=== PATIENT | male | born 2005 | race Two or more races ===

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

== ENCOUNTER 2024-09-06 03:23 | Emergency (ER) | payer OTHER, SELFPAY ==
[2024-09-06 03:31] VITALS: BP 148/102
[2024-09-06 04:47] LABS: % Basophils 0.4 % (0-2); % Eosinophils 1.9 % (0-6); % Immature Granulocytes 0.3 % (0-0.5); % Lymphocytes 35.5 % (20.5-51.1); % Neutrophils 53.9 % (42.2-75.2); Absolute Basophils 0.1 10^3/uL (0-0.2); Absolute Eosinophils 0.2 10^3/uL (0-0.7); Absolute Lymphocytes 4.2 10^3/uL (1.2-3.4); Absolute Monocytes 0.9 10^3/uL (0.1-0.6); Absolute Neutrophils 6.3 10^3/uL (1.4-6.5); Hematocrit 42.9 % (39.0-52.0); Hemoglobin 14.7 g/dL (13.0-18.0); Mean Corp Hgb Conc. 34.3 g/dL (33.0-37.0); Mean Corpuscular Hgb 28.9 pg (27.0-31.0); Mean Corpuscular Volume 84.4 fL (80.0-94.0); Mean Platelet Volume 10.2 fL (7.4-10.4); Nucleated Red Blood Cells % 0 % (-); Platelet Count 333 10^3/uL (130-400); Red Blood Cell Count 5.08 10^6/uL (4.70-6.10); Red Cell Dist. Width 12.6 % (11.5-14.5); White Blood Cell Count 11.8 10^3/uL (4.8-10.8)
[2024-09-06 04:50] LABS: Urine Albumin 1+ (Neg - Trace); Urine Bilirubin Negative (Negative); Urine Character Clear (Clear); Urine Color Yellow; Urine Glucose 4+ (Negative); Urine Ketone Negative (Negative); Urine Leukocyte Negative (Negative); Urine Nitrite Negative (Negative); Urine Occult Blood Negative (Negative); Urine Urobilinogen Negative (Neg - 1+); Urine pH 6.5 (5.0-9.0)
[2024-09-06 05:09] LABS: Urine Red Blood Cell 0-2 /HPF (0-2); Urine White Cell None Seen /HPF (0-5)
[2024-09-06 05:19] LABS: Blood Urea Nitrogen 14 mg/dl (9-20); Calcium 9.7 mg/dl (8.4-10.2); Carbon Dioxide 25 mmol/L (22-30); Chloride 106 mmol/L (98-107); Glucose 289 mg/dl (70-99); Lipase 71 U/L (23-300); Sodium 139 mmol/L (135-145); eGFR > 60.00
[2024-09-06] MEDS: TORADOL 15 MG IV (06:40)
[2024-09-06 06:50] VITALS: BP 140/76
--- NOTE | 2024-09-06 07:03 | ED.GENMED ---
History of Present Illness
General
Chief Complaint: Flank Pain
Source: patient
Exam Limitations: none
Time Seen by Provider: 09/06/24 06:06
Nursing documentation reviewed up to this point in time: agreed with
History of Present Illness
History of Present Illness:
Patient with history of diabetes, presents to ED secondary to 4-day history of persistent left flank/mid back pain. Denies fever or chills. Denies nausea, vomiting, or diarrhea. Denies difficulty with urination. Denies trauma. Denies recent
illness. Denies recent change in medications or diet. There is no family history of kidney stones. Denies previous history of similar symptoms.
Review of Systems
Review of Systems
Allergies reviewed?: Yes
All Other Systems: ROS reviewed and negative except as documented in HPI and ROS
Constitutional: Reports no symptoms; Denies fever
ABD/GI: Denies vomiting or diarrhea
: Reports flank pain
Musculoskeletal: Reports back pain
Skin: Reports no symptoms
Neurological: Reports no symptoms
Phy Exam
Physical Exam
Physical Exam:
Physical Exam
General: mild painful distress, not acutely ill. afebrile
Head: nc/at. eomi
Neck: supple. no meningeal signs.
Heart: s1/s2 regular rate and rhythm
Lungs: no acute respiratory distress. clear bilaterally
Abdomen: normal bowel sounds. not tender.
Back: no midline tenderness
Neuro: alert and oriented x 3. no focal neurological deficits
Skin: no rash
Psychiatric: well kept. interactive and cooperative
Extremities: no edema. no calf tenderness.
Course
Orders/Labs/Results
Orders:
Orders
09/06/24 04:36
Basic Metabolic Panel Urgent
Comment: NO K
Complete Blood Count/With Diff Urgent
Lipase Urgent
Urinalysis Reflex To Culture Urgent
Date Specimen was Collected: 09/06/24
Time Specimen was Collected: 04:05
Urine Microscopic Reflex Cult Urgent
09/06/24 06:27
Ketorolac [Toradol] 15 mg IV NOW STA
09/06/24 06:28
CT Abd/pel Without Iv Or Oral Urgent
Comment:
Reason For Exam: left flank pain
09/06/24 06:32
Ketorolac [Toradol] 15 mg .ROUTE .STK-MED ONE
Abnormal Lab Results
09/06/24
04:36
WBC 11.8 H 10^3/uL
(4.8-10.8)
Absolute Lymphs (auto) 4.2 H 10^3/uL
(1.2-3.4)
Absolute Monos (auto) 0.9 H 10^3/uL
(0.1-0.6)
Glucose 289 H mg/dl
(70-99)
Urine Glucose 4+ A
(Negative)
Urine Albumin (Reflex) 1+ A
(Neg - Trace)
09/06/24 04:36
09/06/24 04:36
Vital Signs
Initial and Last Documented VS:
Initial Vital Signs
Temp Pulse Resp BP Pulse Ox
98.1 F 98 20 148/102 98
09/06/24 03:31 09/06/24 03:31 09/06/24 03:31 09/06/24 03:31 09/06/24 03:31
Last Documented Vital Signs
Temp Pulse Resp BP Pulse Ox
98.1 F 92 16 145/74 98
09/06/24 03:31 09/06/24 09:52 09/06/24 09:52 09/06/24 09:52 09/06/24 09:52
MDM/Problems Addressed
MDM/Problems Addressed:
Patient with an unremarkable workup in ED, including blood work and CT abdomen pelvis. Patient reports mild improvement after treatment. Patient otherwise remains afebrile, hemodynamically stable, and nontoxic-appearing. Via language line,
discussed all test results and return precautions provided. Patient expresses understanding at time of discharge, including need to follow-up with PCP for reevaluation, including reassessment of flank pain along with hyperglycemia.
*Critical Care Note
Total Time (30-74mins, 75-104mins- exclusive of procedures): Not Applicable
ED Attending Note
-
Portions of this chart may have been created with voice recognition software.� Occasional wrong word or��sound alike� substitutions may have occurred due to the inherent limitations of voice recognition software.
Discharge Plan
Departure
Patient Disposition: Home (Routine Discharge)
Date of Disposition: 09/06/24
Time of Disposition: 09:53
Patient with high blood pressure during this ER visit?: Yes
Condition: Good
Discharge Problem:
Flank pain, Hyperglycemia
Instructions: Flank Pain (DC), High blood sugar in adults - ED discharge instructions
Referrals:
UNKNOWN - PT DOES,NOT KNOW [Family Provider] -
Activity Restrictions/Additional Instructions:
As discussed, please follow-up with your primary care physician for reevaluation. Please return to ED with worsening symptoms, i.e. fever/worsening pain/vomiting.
Interventions
Interventions:
*Risk Screen - Suicide Last Done: 09/06/24 03:31
*General Assessment Last Done: 09/06/24 03:31
*Neglect/Abuse Screening Last Done: 09/06/24 03:31
*ED- Fall Risk Assessment Last Done: 09/06/24 03:31
*ED COVID-19 Vaccine History Last Done: 09/06/24 03:31
*Nursing Disposition Last Done: 09/06/24 10:02
WP-Jauhql-Thnjvvzboy Assessment Last Done: 09/06/24 03:55
ED-Male Genitourinary Assessment Last Done: 09/06/24 03:55
Discharge Date and Time
Discharge Date/Time: 09/06/24 10:08
Print Language: GERMAN
[2024-09-06 09:52] VITALS: BP 145/74
== END 2024-09-06 10:08 | disposition home or self-care (01) ==
LOC: EMR 03:23
PROVIDERS: Emergency Medicine; EMERGENCY PHYSICIAN Emergency Medicine
DX: R10.9 Unspecified abdominal pain (principal); E11.65 Type 2 diabetes mellitus with hyperglycemia
CPT/HCPCS: 99284; 96374; 74176; 80048; 81003; 81015; 83690; 85025

== ENCOUNTER → 2025-02-16 10:25 | Outpatient (REF) | payer OTHER, SELFPAY ==
[2025-02-16 11:42] LABS: Microalb - Urine Creatinine 196.500 mg/dl
[2025-02-16 11:52] LABS: ALT (SGPT) 147 U/L (0-50); AST (SGOT) 67 U/L (17-59); Albumin 4.5 g/dl (3.5-5.0); Alkaline Phosphatase 67 U/L (38-126); Blood Urea Nitrogen 13 mg/dl (9-20); Calcium 9.5 mg/dl (8.4-10.2); Carbon Dioxide 27 mmol/L (22-30); Chloride 99 mmol/L (98-107); Glucose 210 mg/dl (70-99); HDL Cholesterol 40 mg/dl; LDL Cholesterol, Calculated 152 mg/dl; Potassium 4.5 mmol/L (3.5-5.1); Sodium 136 mmol/L (135-145); Total Protein 8.4 g/dl (6.3-8.2); Very Low Density Lipoprotein 42 mg/dl (0-30); eGFR > 60.00
[2025-02-16 12:03] LABS: Glycohemoglobin (HgbA1c) 9.0 % (4.0-5.9)
[2025-02-16 12:46] LABS: Microalbumin, Random Urine 40.3 mg/dl (0.6-1.7)
== END ==
LOC: CLINIC 10:25
PROVIDERS: ATTENDING PHYSICIAN Nurse Practitioner Adult Health
DX: K75.81 Nonalcoholic steatohepatitis (NASH) (principal); E11.65 Type 2 diabetes mellitus with hyperglycemia; I10 Essential (primary) hypertension
CPT/HCPCS: 36415; 80053; 80061; 82043; 82570; 83036; 84443